=== PATIENT | male | born 1995 | race Caucasian/White ===

== ENCOUNTER 2021-02-21 13:17 | Emergency (ER) | payer BC, OTHER ==
[2021-02-21 13:29] VITALS: BMI 30.9
[2021-02-21] MEDS ORDERED: ACETAMINOPHEN 325 MG TABLET (FP) PO ONE (14:35)
[2021-02-21] MEDS ORDERED: ACETAMINOPHEN 325 MG TABLET (FP) ONE (14:43)
[2021-02-21] MEDS ORDERED: CASIRIVIMAB/IMDEVIMAB 10 ML in SODIUM CHLORIDE 100 ML IVPB ONE (17:44)
[2021-02-21 22:17] VITALS: BP 140/80; PULSE 84; TEMP 99.1
== END 2021-02-21 22:45 | disposition home or self-care (01) ==
LOC: JCOVINFU 13:17 → JER 13:17 → JCOVINFU 22:45
PROC: 3E033GC Introduction of Other Therapeutic Substance into Peripheral Vein, Percutaneous Approach (ICD-10-PCS; principal; 2021-02-21)
DX: U07.1 COVID-19 (principal)
CPT/HCPCS: 99284-25; C9803; M0240; Q0240; U0003; U0005